=== PATIENT | female | born 1980 | race Caucasian/White ===

== ENCOUNTER 2017-04-28 19:42 | Inpatient (IN) | payer MEDICAID ==
[~2017-04-28] VITALS: Ht 162.6 cm; Wt 64.0 kg
[~2017-04-28 19:42] MED LIST: CLEO300C2 PO; TRAM50 PO; TYLE3 PO; Z.0.NO CURRENT MEDS
--- NOTE | 2017-04-28 20:32 | HHI.HP ---
HPI Chief Complaint Vaginal bleeding Date Seen: Apr 28, 2017 Travel History International Travel<30 Days: No Contact w/Intl Traveler<30Days: No Known Affected Area: No History of Present Illness HPI Patient is 37-year-old white female at 29 weeks complaining of vaginal bleeding today. She denies pain. Or leakage of fluid. She states she's passed several blood clots one the size of a lemon today and is been spotting all day.. Days ago she had what she describes as of bleeding a lot just running out her legs at work and she saw Dr. Kumar for this she's had several ultrasounds as well. heart rate tracing is reactive and she is not te at this time. Para: 2 : 5 History Obstetric History Obstetric History 2 vaginal deliveries Social History Narrative Social History Has a history of IV drug abuse IV opiate use but has been clean for a year she is on Subutex now Alcohol Use: No Tobacco Use: No Substance Abuse: Yes Allergies-Medications (Allergen,Severity, Reaction): Coded Allergies: penicillin G (Unverified Allergy, Severe, rash itch, 04/25/17) Home Meds Active Scripts Acetaminophen/Codeine (Tylenol #3)300 Mg/30 Mg Tab1-2 Tab PO Q4-6HPRN #20 FOR PAIN Prov:Michel Farley MD 06/11/12 Clindamycin Hcl (Cleocin)300 Mg Ttu546 Mg PO QID #40 Prov:Michel Farley MD 06/11/12 Tramadol Hcl (Ultram)50 Mg Tab1 Tab PO Q6HPRN #20 Prov:Hunter Montanez MD 11/25/11 Reported Medications Miscellaneous (No Current Meds) [facility] [place] 02/28/11 Review of Systems General / Constitutional: No: Fever, Weight Gain, Chills, Other Eyes: No: Diploplia, Blurred Vision, Visual changes, Pain, Photophobia HENT: No: Headaches, Vertigo, Lightheadedness Cardiovascular: No: Irregular Rhythm, Chest Pain or Discomfort, Palpitations, Tachycardia, Syncope, Varicosities, Edema, Cyanosis Respiratory: No: Cough, Short of Breath, Other Gastrointestinal: No: Nausea, Vomiting, Diarrhea Genitourinary: Vaginal Bleeding, No: Decreased Urinary Output, Oliguria Musculoskeletal: No: Limited ROM, Weakness, Cramping, Edema, Pain Skin: No Rash, No Itching, No Dryness, No Lumps, No Change in Pigmentation, No Change in Nails, No Alopecia, No Lesions Neurologic: No: Weakness, Dizziness, Syncope, Focal Abnormalities, Coordination Problem, Headache, Slurred Speech, Seizures Psychiatric: No: Depression, Suicidal Ideations, Homicidal Ideation Endocrine: No: Heat Intolerance, Cold Intolerance, Polydipsia, Polyuria, Other Physical Exam Narrative GENERAL: Well-nourished, well-developed patient. SKIN: Warm and dry. HEAD: Normocephalic and atraumatic. EYES: No scleral icterus. No injection or drainage. ENT: No nasal drainage noted. Mucous membranes pink. Airway patent. NECK: Supple, trachea midline. No JVD. CARDIOVASCULAR: Regular rate and rhythm without murmurs, gallops, or rubs. RESPIRATORY: Breath sounds equal bilaterally. No accessory muscle use. BREASTS: Bilateral exam showed no masses , no retractions, no nipple discharge. ABDOMEN/GI: Abdomen soft, non-tender, bowel sounds present, no rebound, no guarding Gravid to [-29] weeks size Fundal Height: [29-] GENITOURINARY: External Genitalia: intact and normal in appearance Speculum exam was done there is a minimal amount of dark blood in the vagina and pinnae size blood clot at the cervical os. Cervix appears thick and closed internal os, fingertip external os however no digital exam was done.] Cervix: [-] Dilatation: [-] Effacement: [-] Station: [-] Presentation: [-] Membranes: [intact or ruptured] Uterine Contractions: [none-] FHT's: Category: [1-] Baseline: [-133] Reactive: [-yes] Variability: [mod-] Decels: [none-] EXTREMITIES: No cyanosis or edema. BACK: Nontender without obvious deformity. No CVA tenderness. NEUROLOGICAL: Awake and alert. Motor and sensory grossly within normal limits. Five out of 5 muscle strength in all muscle groups. Normal speech. Data Data Labs Bedside ultrasound was done shows a single male fetus in a backdown transverse lie with a head to the right, size equal dates , baby is very active ,a posterior marginal previa seen, amniotic fluid volume Assessment/Plan Assessment and Plan This patient is 37-year-old white female 29 weeks who has third trimester bleeding painless over the last week. Tonight she comes in with a vaginal bleeding complaint and on bedside ultrasound I can visualize a posterior placenta previa at the margin very close to the cervix if not attached to the lower edge cervix Impression-third trimester bleeding from a posterior placenta previa, mal presentation of fetus backdown transverse lie History of drug abuse with IV drug usage in the past currently on Subutex Plan-admit to the hospital for inpatient observation, plan idea level II ultrasound in the near very near future, CBC CMP PT PTT, type and screen, maintain IV access. We will discuss the patient with Dr. Nance is covering for Dr. Kumar's weekend Anderson Rich II, MD Apr 28, 2017 20:32
[2017-04-28] MEDS ORDERED: SODIUM CHLORIDE 0.9% FLUSH 10 ML FLUSH IV FLUSH PRN (20:45)
[2017-04-28] MEDS ORDERED: ONDANSETRON HCL 4 MG/2 ML VIAL IV PRN (20:45)
[2017-04-28] MEDS ORDERED: SODIUM CHLORIDE 0.9% FLUSH 10 ML FLUSH IV FLUSH SCH (21:00)
[2017-04-28 21:06] LABS: AUTOMATED NEUTROPHIL # 5.3 TH/MM3 (1.8-7.7); BASOPHIL % 0.3 % (0.0-2.0); EOSINOPHIL # 0.2 TH/MM3 (0-0.4); EOSINOPHIL % 2.4 % (0.0-4.0); HEMO FLAGS DIFF FINAL; LYMPH % 18.3 % (9.0-44.0); LYMPHOCYTE # 1.5 TH/MM3 (1.0-4.8); MEAN CELL VOLUME 83.2 FL (80.0-100.0); MEAN CORPUSCULAR HEMOGLOBIN 28.5 PG (27.0-34.0); MEAN CORPUSCULAR HGB CONC 34.2 % (32.0-36.0); MONO % 12.5 % (0.0-8.0); NEUT % 66.5 % (16.0-70.0); PLATELET COUNT 215 TH/MM3 (150-450); RED BLOOD COUNT 3.85 MIL/MM3 (4.00-5.30); RED CELL DISTRIBUTION WIDTH 13.4 % (11.6-17.2)
[2017-04-28] MEDS ORDERED: LACTATED RINGER'S 1000 ML INJ 1,000 ML IV SCH (21:15)
[2017-04-28] MEDS ORDERED: FOLI400T PO (21:42)
[2017-04-28] MEDS ORDERED: [UNRECOGNIZED DRUG - CODE] (21:42)
[2017-04-28] MEDS ORDERED: PREN1TAB30 (21:42)
[2017-04-28 23:57] LABS: APTT (PATIENT) 29.9 SEC (24.3-30.1); PROTHROMBIN TIME - PATIENT 10.6 SEC (9.8-11.6)
[2017-05-04 12:01] LABS: PHENCYCLIDINE URINE NEG (NEG)
[2017-05-04 12:03] LABS: BATH SALTS (MDPV) UR NEG (NEG); ECSTASY (MDMA) UR NEG (NEG); HEROIN (6-ACETYLMORPHINE) UR NEG (NEG); K2 SPICE UR NEG (NEG); OBMETHADONE UR NEG (NEG)
[2017-05-04 12:04] LABS: GABAPENTIN UR NEG (NEG)
[2017-05-04 12:05] LABS: HYDROMORPHONE U POS (NEG)
== END 2017-04-29 00:34 | disposition left against medical advice (07) | DRG 782 ==
LOC: HOBED 19:42 → H2EA 20:49
PROVIDERS: ADMIT Obstetrics & Gynecology; ATTEND Obstetrics & Gynecology
DX: O44.03 Complete placenta previa NOS or without hemorrhage, third trimester (principal); O09.523 Supervision of elderly multigravida, third trimester; Z3A.29 29 weeks gestation of pregnancy
CPT/HCPCS: 76815; 80307; 85025; 85610; 85730; 86850; 86900; 86901; G0481; J7120

== ENCOUNTER → 2017-05-11 | Outpatient (CLI) | payer MEDICAID ==
[~2017-05-11] MED LIST changes: +BETAMETHASONE SOD PHOS/ACETATE SUSP 30 MG/5 ML VIAL IM SCH; -CLEO300C2 PO; +FOLI400T PO; +IBUP-232 PO; +PREN1TAB30; +SUBUTEX; -TRAM50 PO; -TYLE3 PO; -Z.0.NO CURRENT MEDS; +[UNRECOGNIZED DRUG - CODE]
== END ==
LOC: HPND 11:03
PROVIDERS: ATTEND Obstetrics & Gynecology
DX: O44.03 Complete placenta previa NOS or without hemorrhage, third trimester (principal)
CPT/HCPCS: 76816; 76817; 96372; J0702

== ENCOUNTER → 2017-05-12 | Outpatient (CLI) | payer MEDICAID ==
[~2017-05-12] MED LIST changes: +BETAMETHASONE SOD PHOS/ACETATE SUSP 30 MG/5 ML VIAL IM ONE; -BETAMETHASONE SOD PHOS/ACETATE SUSP 30 MG/5 ML VIAL IM SCH
== END ==
LOC: HOBG 11:21
PROVIDERS: ATTEND Obstetrics & Gynecology
DX: O44.03 Complete placenta previa NOS or without hemorrhage, third trimester (principal); O44.13 Complete placenta previa with hemorrhage, third trimester; Z3A.00 Weeks of gestation of pregnancy not specified
CPT/HCPCS: 96372; J0702

== ENCOUNTER 2017-06-08 10:50 | Inpatient (IN) | payer MEDICAID ==
[2017-06-08] VITALS (13 sets, daily range): BP systolic 99–124; BP diastolic 61–79; PULSE 65–90; RESP 15–23; TEMP 97.7–98.4; O2SAT 98–100
[~2017-06-08] VITALS: Ht 162.6 cm; Wt 64.4 kg
[~2017-06-08 10:50] MED LIST changes: -BETAMETHASONE SOD PHOS/ACETATE SUSP 30 MG/5 ML VIAL IM ONE; +BUPIVACAINE LIPOSOME PF 1.3% 20 ML VIAL ONE; -IBUP-232 PO; -SUBUTEX
[2017-06-08] MEDS ORDERED: SUBUTEX (12:14)
[2017-06-08 12:20] LABS: AUTOMATED NEUTROPHIL # 8.4 TH/MM3 (1.8-7.7); BASOPHIL % 0.2 % (0.0-2.0); EOSINOPHIL # 0.1 TH/MM3 (0-0.4); EOSINOPHIL % 1.3 % (0.0-4.0); HEMATOCRIT 30.1 % (35.0-46.0); LYMPH % 17.3 % (9.0-44.0); MEAN CELL VOLUME 83.3 FL (80.0-100.0); MEAN CORPUSCULAR HEMOGLOBIN 28.5 PG (27.0-34.0); MEAN CORPUSCULAR HGB CONC 34.3 % (32.0-36.0); MONO % 7.3 % (0.0-8.0); NEUT % 73.9 % (16.0-70.0); PLATELET COUNT 244 TH/MM3 (150-450); RED BLOOD COUNT 3.62 MIL/MM3 (4.00-5.30); RED CELL DISTRIBUTION WIDTH 14.3 % (11.6-17.2); WHITE BLOOD COUNT 11.3 TH/MM3 (4.0-11.0)
[2017-06-08 12:22] LABS: HEMO FLAGS AUTO DIFF
[2017-06-08] MEDS: LACTATED RINGER'S 1000 ML IV SCH (12:30)
[2017-06-08] MEDS ORDERED: LACTATED RINGER'S 1000 ML IV ONE (12:30)
[2017-06-08] MEDS ORDERED: BUPRENORPHINE HCL 0.3 MG/1 ML VIAL ONE (12:33)
[2017-06-08 12:37] LABS: BACTERIA, URINE RARE /hpf; BLOOD, URINE MOD (NEG); COMMENT (UR) CULT NOT INDICATED; CULTURE IF INDICATED CULT NOT INDICATED; GLUCOSE,URINE NEG (NEG); KETONE, URINE NEG (NEG); NITRITE,URINE NEG (NEG); PH, URINE 8.5 (5.0-8.5); SQUAMOUS EPITHELIAL CELL URINE 7 /hpf (0-5); URINE COLOR YELLOW (YELLW/STRAW)
[2017-06-08] MEDS ORDERED: ceFAZolin INJ 1,000 MG VIAL ONE (12:40)
--- NOTE | 2017-06-08 12:42 | HHI.HP ---
HPI Chief Complaint CS for bleeding previa Date Seen: Jun 08, 2017 Time Seen: 12:20 Travel History International Travel<30 Days: No Contact w/Intl Traveler<30Days: No Known Affected Area: No History of Present Illness HPI 36 week IUP with bleeding complete previa received steroids and has had 10 episodes of bleeding Weeks Gestation: 36 Para: 4 : 2 Last Menstrual Period: Jun 08, 2017 History Past Medical History Medical History: Denies Significant Hx Obstetric History Obstetric History x2 Past Surgical History Narrative Surgical none Family History Family History: Negative Social History Alcohol Use: No Tobacco Use: No Substance Abuse: No Allergies-Medications (Allergen,Severity, Reaction): Coded Allergies: penicillin G (Verified Allergy, Severe, rash itch, 06/08/17) Home Meds Reported Medications [Subutex] No Conflict Check, 930 06/08/17 Ascorbic Acid/Ascorbate Sodium (Vit C-Tamie Hips 500 mg Chew Tb) 500 Mg Tab.chew 04/28/17 Folic Acid (Folic Acid) 400 Mcg Tab, 400 MCG PO DAILY for Nutritional Supplement , TAB 0 Refills 04/28/17 Vit W/ Ferrous Fumara ( Vitamin 27-0.8 mg) 1 Tab Tab 04/28/17 Review of Systems Except as stated in HPI: all other systems reviewed are Neg Physical Exam Narrative GENERAL: Well-nourished, well-developed patient. SKIN: Warm and dry. HEAD: Normocephalic and atraumatic. EYES: No scleral icterus. No injection or drainage. ENT: No nasal drainage noted. Mucous membranes pink. Airway patent. NECK: Supple, trachea midline. No JVD. CARDIOVASCULAR: Regular rate and rhythm without murmurs, gallops, or rubs. RESPIRATORY: Breath sounds equal bilaterally. No accessory muscle use. BREASTS: Bilateral exam showed no masses , no retractions, no nipple discharge. ABDOMEN/GI: Abdomen soft, non-tender, bowel sounds present, no rebound, no guarding Gravid to [-] weeks size Fundal Height: [-] GENITOURINARY: External Genitalia: intact and normal in appearance BUS glands: [-] Cervix: [-] Dilatation: [-] Effacement: [-] Station: [-] Presentation: [-] Membranes: [intact or ruptured] Uterine Contractions: [-] FHT's: Category: [-] Baseline: [-] Reactive: [-] Variability: [-] Decels: [-] EXTREMITIES: No cyanosis or edema. BACK: Nontender without obvious deformity. No CVA tenderness. NEUROLOGICAL: Awake and alert. Motor and sensory grossly within normal limits. Five out of 5 muscle strength in all muscle groups. Normal speech. Caprini VTE Risk Assessment Caprini VTE Risk Assessment: No/Low Risk (score <= 1) Caprini Risk Assessment Model Point Value = 1 Point Value = 2 Point Value = 3 Point Value = 5 Age 41-60 Minor surgery BMI > 25 kg/m2 Swollen legs Varicose veins or History of unexplained or recurrent spontaneous Oral contraceptives or hormone replacement Sepsis (< 1 month) Serious lung disease, including pneumonia (< 1 month) Abnormal pulmonary function Acute myocardial infarction Congestive heart failure (< 1 month) History of inflammatory bowel disease Medical patient at bed rest Age 61-74 Arthroscopic surgery Major open surgery (> 45 min) Laparoscopic surgery (> 45 min) Malignancy Confined to bed (> 72 hours) Immobilizing plaster cast Central venous access Age >= 75 History of VTE Family history of VTE Factor V Leiden Prothrombin [id number] Lupus anticoagulant Anticardiolipin antibodies Elevated serum homocysteine Heparin-induced thrombocytopenia Other congenital or acquired thrombophilia Stroke (< 1 month) Elective arthroplasty Hip, pelvis, or leg fracture Acute spinal cord injury (< 1 month) Prophylaxis Regimen Total Risk Factor Score Risk Level Prophylaxis Regimen 0-1 Low Early ambulation 2 Moderate Order ONE of the following: *Sequential Compression Device (SCD) *Heparin 5000 units SQ BID 3-4 Higher Order ONE of the following medications: *Heparin 5000 units SQ TID *Enoxaparin/Lovenox 40 mg SQ daily (WT < 150 kg, CrCl > 30 mL/min) *Enoxaparin/Lovenox 30 mg SQ daily (WT < 150 kg, CrCl > 10-29 mL/min) *Enoxaparin/Lovenox 30 mg SQ BID (WT < 150 kg, CrCl > 30 mL/min) AND/OR *Sequential Compression Device (SCD) 5 or more Highest Order ONE of the following medications: *Heparin 5000 units SQ TID (Preferred with Epidurals) *Enoxaparin/Lovenox 40 mg SQ daily (WT < 150 kg, CrCl > 30 mL/min) *Enoxaparin/Lovenox 30 mg SQ daily (WT < 150 kg, CrCl > 10-29 mL/min) *Enoxaparin/Lovenox 30 mg SQ BID (WT < 150 kg, CrCl > 30 mL/min) AND *Sequential Compression Device (SCD) Data Data Vital Signs Reviewed: Yes Orders Orders Admit To Inpatient (06/08/17 ) Vital Signs (Adult) .ON ADMISSION (06/08/17 11:08) Activity Oob Ad Yahaira (06/08/17 11:08) Heart (06/08/17 11:08) Urinary Catheter Management KELSEA.Q8H (06/08/17 11:08) ^ Preps (06/08/17 11:08) Scd / Dominguez / Foot Pump KELSEA.QSHIFT (06/08/17 11:08) ^ Ultrasound For Locatio (06/08/17 11:08) Diet Npo (06/08/17 Lunch) Type And Screen (06/08/17 11:08) Complete Blood Count With Diff (06/08/17 11:08) Urinalysis - C+S If Indicated (06/08/17 11:08) Specimen To Be Collected PRN (06/08/17 11:08) Ob/Psych Drug Screen, Urine (06/08/17 11:08) Red Blood Cells (Rbc) (06/08/17 11:52) Lactated Ringer's 1000 Ml Inj (Lr 1000 M (06/08/17 12:30) Lactated Ringer's 1000 Ml Inj (Lr 1000 M (06/08/17 12:30) Citric Acid-Sodium Citrate Liq (Bicitra (06/08/17 12:45) Cefazolin 2 Gm Premix (Ancef 2 Gm Premix (06/08/17 12:45) Buprenorphine Inj (Buprenex Inj) (06/08/17 12:33) Group B Strep: Negative Labs Laboratory Tests Test 06/08/17 11:30 06/08/17 11:47 White Blood Count 11.3 Red Blood Count 3.62 Hemoglobin 10.3 Hematocrit 30.1 Mean Corpuscular Volume 83.3 Mean Corpuscular Hemoglobin 28.5 Mean Corpuscular Hemoglobin Concent 34.3 Red Cell Distribution Width 14.3 Platelet Count 244 Mean Platelet Volume 7.2 Neutrophils (%) (Auto) 73.9 Lymphocytes (%) (Auto) 17.3 Monocytes (%) (Auto) 7.3 Eosinophils (%) (Auto) 1.3 Basophils (%) (Auto) 0.2 Neutrophils # (Auto) 8.4 Lymphocytes # (Auto) 2.0 Monocytes # (Auto) 0.8 Eosinophils # (Auto) 0.1 Basophils # (Auto) 0.0 CBC Comment AUTO DIFF Assessment/Plan Problem List: (1) 36 weeks gestation of ICD Codes: Z3A.36 - 36 weeks gestation of (2) Placenta previa ICD Codes: O44.00 - Complete placenta previa NOS or without hemorrhage, unspecified trimester Plan: for CS Michel Leong MD Jun 08, 2017 12:42
[2017-06-08] MEDS ORDERED: ceFAZolin 2 GM PREMIX 50 ML IV SCH (12:45)
[2017-06-08] MEDS ORDERED: CITRIC ACID-SODIUM CITRATE LIQ 30 ML UDC PO SCH (12:45)
[2017-06-08 12:52] LABS: PLATELET ESTIMATE SMEAR NORMAL (NORMAL); PLATELET MORPHOLOGY NORMAL (NORMAL); SCAN/DIFF AUTO DIFF CONFIRMED
[2017-06-08] MEDS ORDERED: ACETAMINOPHEN 1000 MG/100 ML 100 ML IV ONE (13:17)
--- NOTE | 2017-06-08 13:29 | PD.OB.DELI ---
Procedure Note Section Procedure Pre Op Diagnosis: (1) Placenta previa (2) 36 weeks gestation of Post Op Diagnosis: (1) Placenta previa Performed by Michel Leong Procedure: Primary Low Transverse Sec Indication for delivery: Other (bleeding placenta previa at 36 weeks) Previous condition: None Informed consent obtained: For anesthesia, For procedure Confirmed correct: Patient, Procedure, Time-out taken Anesthesia: Spinal, Other (general) Urinary catheter: Inserted using sterile technique, To dependent drainage Sterile preparation: Duraprep Position: Supine with wedge to left side Operative Features Skin Incision: Pfannenstiel Uterine Incision: Low transverse w/knife / blunt ext Presentation: Occiput anterior, Other (unstable) Delivery date: Jun 08, 2017 Delivery time: 13:02 Delivery of : Uneventful : Male One Minute : 8 Five Minute : 9 Weight: 2630 Status of infant: Viable Placenta delivered: Intact, Sent to pathology Medications: Antibiotics Estimated blood loss: 500 Procedure tolerated: Well Maternal Condition: Stable Condition: Stable Michel Leong MD Jun 08, 2017 13:29
[2017-06-08] MEDS ORDERED: SODIUM CHLORIDE 0.9% FLUSH 10 ML FLUSH IV FLUSH PRN (13:30)
[2017-06-08] MEDS ORDERED: OXYTOCIN 30 UNITS-500ML PREMIX 500 ML IV ONE (13:30)
[2017-06-08] MEDS: KETOROLAC TROMETHAMINE 60 MG/2 ML (IM) VIAL IM PRN (14:26)
[2017-06-08] MEDS ORDERED: KETOROLAC TROMETHAMINE 30 MG/ML (IVP) VIAL ONE (14:29)
[2017-06-08] MEDS ORDERED: OXYTOCIN 30 UNITS-500ML PREMIX 500 ML ONE (14:48)
[2017-06-08] MEDS ORDERED: SIMETHICONE 80 MG CHEWABLE TAB PO PRN (15:00)
[2017-06-08] MEDS ORDERED: ACETAMINOPHEN 1000 MG/100 ML VIAL IV ONE (15:00)
--- NOTE | 2017-06-08 15:59 | MP ---
cc: VICTORIANO LEONG M.D. DATE OF SURGERY: 06/08/2017 PROCEDURE Primary low transverse section PREOPERATIVE DIAGNOSIS 36 weeks actively bleeding placenta previa. POSTOPERATIVE DIAGNOSIS 36 weeks, actively bleeding placenta previa. SURGEON Dr. Victoriano Leong ESTIMATED BLOOD LOSS 500 cc. ANESTHESIA: Spinal which was not adequate. General anesthesia was applied by Dr. Mcghee COMPLICATIONS None SAP SD ANALYST SURGEON Dr. Emiliana Mcghee FINDINGS Live male , 'S of 08. Meconium-stained fluid old meconium-stained fluid was noted. PROCEDURE IN DETAIL After informed consent the patient was taken to the operating room where she placed under spinal anesthesia placed spine position left lateral tilt. Prepped, draped normal sterile fashion after adequate anesthesia was assured and the patient was under general anesthesia, Pfannenstiel skin itself. A Pfannenstiel skin incision was carried sharply skin to fascia. Fascia nicked midline incision was then laterally using Watson scissors. Rectus muscle was sharply dissected and the peritoneum was entered bluntly with a [place]. The incision was then extended laterally using blunt traction. The uterus noted be midline slightly tilted to the left a bladder flap was created by dissect bladder off the lower uterine segment and a low-transverse uterine incision was then made, carried sharply uterine cavity meconium stained fluid was noted. The incision was then laterally using blunt traction. Meconium-stained fluid, tea-colored was noted. A hand was placed in the uterus. The 's head was very unstable, it kept shifting to the patient's right despite fundal pressure. Once the fluid was out we were able to bring the head down, flex it on the chest and then deliver the baby with fundal pressure by Dr. Lauren. The delivered, the shoulders were then delivered. Cord was clamped and cut and sent to pediatric team in waiting. The cord blood was collected. Placenta was identified manually. Uterus exteriorized and wiped free from all remaining products of conception. The placenta previa was complete previa over the os. The os was opened to 1-2 cm dilated, there was no significant active bleeding. The incision was closed with running locking stitch of chromic suture. There were some large vessels down near the incision from the placenta previa but they were not actively bleeding when the uterus was closed in some. The uterus placed back in the abdomen noted to be hemostatic. The bladder flap was oozing slightly. This was cauterized at the end of procedure. Peritoneum was closed the fascia was closed Vicryl suture. Skin was closed subcuticular stitch, each layer was noted be hemostatic prior to closure. The patient tolerated the procedure well. MD ZACARIAS Price/kecia /1:29 PM /2:55 PM
[2017-06-08] MEDS ORDERED: LACTATED RINGER'S 1000 ML INJ 1,000 ML IV SCH (18:23)
[2017-06-08] MEDS ORDERED: EPIDURAL-DO NOT ADMINISTER ANTICOAGULANTS PRN (20:00)
[2017-06-08] MEDS ORDERED: MORPHINE SULFATE PF 5 MG/10 ML VIAL IT ONE (20:00)
[2017-06-08] MEDS ORDERED: EPIDURAL-DIPHENHYDRAMINE HCL 50 MG CAP PO PRN (20:00)
[2017-06-08] MEDS ORDERED: EPIDURAL-NO SYSTEMIC NARCOTICS PRN (20:00)
[2017-06-08] MEDS ORDERED: EPIDURAL-NALOXONE HCL 0.4 MG/ML AMP IV PUSH PRN (20:00)
[2017-06-08] MEDS ORDERED: EPIDURAL-DIPHENHYDRAMINE HCL 50 MG/ML VIAL IV PUSH PRN (20:00)
[2017-06-08] MEDS ORDERED: SODIUM CHLORIDE 0.9% FLUSH 10 ML FLUSH IV FLUSH SCH (21:00)
[2017-06-08] MEDS ORDERED: OXYTOCIN 30 UNITS-500ML PREMIX 500 ML IV PRN (23:30)
[2017-06-09 01:00] VITALS: BP 114/74; PULSE 72; RESP 18; TEMP 98.8
[2017-06-09] MEDS: PROMETHAZINE HCL 25 MG TAB PO PRN ×3 (01:20→22:06)
[2017-06-09] MEDS: KETOROLAC TROMETHAMINE 60 MG/2 ML (IM) VIAL IM PRN ×2 (01:21→08:59)
[2017-06-09 05:53] LABS: AUTOMATED NEUTROPHIL # 8.5 TH/MM3 (1.8-7.7); BASOPHIL % 0.2 % (0.0-2.0); EOSINOPHIL # 0.1 TH/MM3 (0-0.4); EOSINOPHIL % 0.5 % (0.0-4.0); HEMATOCRIT 22.9 % (35.0-46.0); HEMO FLAGS DIFF FINAL; LYMPH % 14.9 % (9.0-44.0); LYMPHOCYTE # 1.7 TH/MM3 (1.0-4.8); MEAN CELL VOLUME 83.6 FL (80.0-100.0); MEAN CORPUSCULAR HEMOGLOBIN 28.3 PG (27.0-34.0); MEAN CORPUSCULAR HGB CONC 33.9 % (32.0-36.0); MONO % 8.1 % (0.0-8.0); NEUT % 76.3 % (16.0-70.0); PLATELET COUNT 218 TH/MM3 (150-450); RED BLOOD COUNT 2.74 MIL/MM3 (4.00-5.30); RED CELL DISTRIBUTION WIDTH 14.2 % (11.6-17.2); WHITE BLOOD COUNT 11.1 TH/MM3 (4.0-11.0)
[2017-06-09 05:55] VITALS: BP 114/68; PULSE 66; RESP 18; TEMP 98.1
--- NOTE | 2017-06-09 07:54 | HHI.OB ---
Subjective Post Day: 1 Remarks doing well, pain difficult to control without narcotics Objective Objective Remarks GENERAL: Well-nourished, well-developed patient. Pt sleeping ABDOMEN/GI: Abdomen soft, non-tender. Fundus: Firm, non-tender at umbilicus. GENITOURINARY: Light to moderate bleeding. EXTREMITIES: No cyanosis or edema, non-tender, without signs of DVT. Medications and IVs Current Medications Medications (Trade) Dose Ordered Sig/Basilio Route Start Time Stop Time Status Last Admin Lactated Ringer's 1,000 ml @ 150 mls/hr Q6H40M IV 06/08/17 12:30 06/08/17 12:30 (Bicitra Liq) 30 ml COLLAR STITCHER PO 06/08/17 12:45 06/11/17 12:44 06/08/17 12:34 Cefazolin Sodium/ Dextrose 50 ml @ 100 mls/hr COLLAR STITCHER IV 06/08/17 12:45 06/11/17 12:44 Lactated Ringer's 1,000 ml @ 100 mls/hr Q10H IV 06/08/17 18:23 06/09/17 14:22 Oxytocin 500 ml @ 100 mls/hr UNSCH X1 PRN IV 06/08/17 23:30 06/09/17 23:29 06/08/17 15:24 (NS Flush) 2 ml BID IV FLUSH 06/08/17 21:00 (NS Flush) 2 ml UNSCH PRN IV FLUSH 06/08/17 13:30 (Mylicon Chew) 80 mg QID PRN PO 06/08/17 15:00 (Motrin) 600 mg Q6H PRN PO 06/08/17 15:00 (Toradol Inj) 30 mg Q6H PRN IM 06/08/17 15:00 06/09/17 14:59 06/09/17 01:21 (M-M-R Ii Inj) 0.5 ml ONCE ONCE SQ 06/09/17 16:00 06/09/17 16:01 (Boostrix Inj) 0.5 ml ONCE ONCE IM 06/09/17 16:00 06/09/17 16:01 (Phenergan) 25 mg Q4H PRN PO 06/08/17 20:00 Miscellaneous Information NO SYSTEMIC NARCOTICS TO BE GIVEN FO... UNSCH PRN .XX 06/08/17 20:00 06/09/17 19:59 (Narcan Inj) 0.4 mg UNSCH PRN IV PUSH 06/08/17 20:00 06/09/17 19:59 (Benadryl Inj) 25 mg Q6H PRN IV PUSH 06/08/17 20:00 06/09/17 19:59 (Benadryl) 50 mg Q6H PRN PO 06/08/17 20:00 06/09/17 19:59 Miscellaneous Information ALL NURSING DEPARTMENTS UNSCH PRN .XX 06/08/17 20:00 06/09/17 19:59 Assessment/Plan Problem List: (1) 36 weeks gestation of ICD Codes: Z3A.36 - 36 weeks gestation of (2) Placenta previa ICD Codes: O44.00 - Complete placenta previa NOS or without hemorrhage, unspecified trimester Plan: for CS (3) delivery delivered ICD Codes: O82 - Encounter for delivery without indication Discharge Planning doing well Michel Leong MD Jun 09, 2017 07:54
[2017-06-09 08:00] VITALS: BP 114/67; PULSE 65; RESP 17; TEMP 98.4
[2017-06-09] MEDS ORDERED: DIPHTH/TETANUS/ACEL PERTUSSIS (BOOSTER) 0.5 ML VIAL/PFS IM ONE (16:00)
[2017-06-09] MEDS ORDERED: MEASLES, MUMPS, RUBELLA VACCINE 0.5 ML VIAL SQ ONE (16:00)
[2017-06-09] MEDS: IBUPROFEN 600 MG TAB PO PRN ×2 (16:04→22:06)
[2017-06-09] MEDS: LACTATED RINGER'S 1000 ML IV SCH (20:07)
[2017-06-10] MEDS: LACTATED RINGER'S 1000 ML IV SCH (04:30)
[2017-06-10] MEDS: PROMETHAZINE HCL 25 MG TAB PO PRN (04:56)
[2017-06-10] MEDS: IBUPROFEN 600 MG TAB PO PRN ×3 (04:56→18:37)
--- NOTE | 2017-06-10 08:09 | HHI.OB ---
Subjective Post Day: 2 Remarks doing well dc home follow up 2 weeks Objective Objective Remarks GENERAL: Well-nourished, well-developed patient. ABDOMEN/GI: Abdomen soft, non-tender. Fundus: Firm, non-tender at umbilicus.incision clear GENITOURINARY: Light to moderate bleeding. EXTREMITIES: No cyanosis or edema, non-tender, without signs of DVT. Medications and IVs Current Medications Medications (Trade) Dose Ordered Sig/Basilio Route Start Time Stop Time Status Last Admin Lactated Ringer's 1,000 ml @ 150 mls/hr Q6H40M IV 06/08/17 12:30 06/08/17 12:30 (Bicitra Liq) 30 ml OIL DISPATCHER PO 06/08/17 12:45 06/11/17 12:44 06/08/17 12:34 Cefazolin Sodium/ Dextrose 50 ml @ 100 mls/hr OIL DISPATCHER IV 06/08/17 12:45 06/11/17 12:44 (NS Flush) 2 ml BID IV FLUSH 06/08/17 21:00 (NS Flush) 2 ml UNSCH PRN IV FLUSH 06/08/17 13:30 (Mylicon Chew) 80 mg QID PRN PO 06/08/17 15:00 (Motrin) 600 mg Q6H PRN PO 06/08/17 15:00 06/10/17 04:56 (Phenergan) 25 mg Q4H PRN PO 06/08/17 20:00 06/10/17 04:56 Assessment/Plan Problem List: (1) 36 weeks gestation of ICD Codes: Z3A.36 - 36 weeks gestation of (2) Placenta previa ICD Codes: O44.00 - Complete placenta previa NOS or without hemorrhage, unspecified trimester Plan: for CS (3) delivery delivered ICD Codes: O82 - Encounter for delivery without indication Discharge Planning pain improved DC home Michel Lenog MD Jun 10, 2017 08:09
--- NOTE | 2017-06-10 08:11 | HHI.DCPOC ---
Discharge Care Plan Diagnosis: (1) delivery delivered Report Symptoms to Your Doctor -Temperature above 100.5 degrees -Redness, of incision or excessive or foul smelling drainage -Unusual pain or calf pain -Increased vaginal bleeding -Painful or difficulty urinating -Feelings of extreme sadness or anxiety after 2 weeks Goals to Promote Your Health * To prevent worsening of your condition and complications * To maintain your health at the optimal level Directions to Meet Your Goals Take your medications as prescribed Follow your dietary instruction Follow activity as directed Ensure plenty of rest for recovery Drink fluids for hydration Keep your appointments as scheduled Take your immunizations and boosters as scheduled If your symptoms worsen call your PCP, if no PCP go to Urgent Care Center or Emergency Room Smoking is Dangerous to Your Health. Avoid second hand smoke Call the 24-hour crisis hotline for domestic abuse at Michel Leong MD Jun 10, 2017 08:11
[2017-06-10] MEDS ORDERED: IBUP-232 PO (08:12)
--- NOTE | 2017-06-10 08:14 | HHI.DS ---
Admission Date Jun 08, 2017 at 10:50 Discharge Date: Jun 10, 2017 Admitting Diagnosis Diagnosis: Delivery Date: Jun 08, 2017 : Primary Infant: Male Brief History 36 week IUP with bleeding complete previa received steroids and has had 10 episodes of bleeding Hospital Course dc home doing well. Pt requesting dc Pt Condition on Discharge: Good Discharge Disposition: Discharge Home Discharge Instructions Diet Instructions: As Tolerated, No Restrictions Activities You Can Perform: Pelvic Rest Activities to Avoid: Driving for 24 hrs Follow up Referrals: PRINTER MACHINE - 1 Week @ [facility] with Michel Leong MD New Medications: Ibuprofen (Ibuprofen) 600 Mg Tab 600 MG PO Q6H PRN for CRAMPING for 7 Days, #28 TAB 0 Refills Continued Medications: Ascorbic Acid/Ascorbate Sodium (Vit C-Tamie Hips 500 mg Chew Tb) 500 Mg Tab.chew Folic Acid (Folic Acid) 400 Mcg Tab 400 MCG PO DAILY for Nutritional Supplement, TAB 0 Refills Vit W/ Ferrous Fumara ( Vitamin 27-0.8 mg) 1 Tab Tab [Subutex] () 750 Michel Leong MD Jun 10, 2017 08:14
[2017-06-12 11:47] LABS: PHENCYCLIDINE URINE NEG (NEG)
[2017-06-12 11:48] LABS: OBMETHADONE UR NEG (NEG)
[2017-06-12 11:49] LABS: BATH SALTS (MDPV) UR NEG (NEG); ECSTASY (MDMA) UR NEG (NEG); GABAPENTIN UR NEG (NEG); HEROIN (6-ACETYLMORPHINE) UR NEG (NEG); K2 SPICE UR NEG (NEG)
[2017-06-12 11:50] LABS: HYDROMORPHONE U POS (NEG)
== END 2017-06-10 22:10 | disposition home or self-care (01) | DRG 766 ==
LOC: H2EB 10:50 → H1EA 15:13
PROVIDERS: ADMIT Obstetrics & Gynecology; ATTEND Obstetrics & Gynecology
PROC: 10D00Z1 Extraction of Products of Conception, Low, Open Approach (ICD-10-PCS; principal; 2017-06-08)
DX: O44.13 Complete placenta previa with hemorrhage, third trimester (principal); O77.0 Labor and delivery complicated by meconium in amniotic fluid; Z37.0 Single live birth; Z3A.36 36 weeks gestation of pregnancy
CPT/HCPCS: 59025; 80307; 81001; 85025; 86850; 86900; 86901; 86920; 87641; 88307; C9290; G0481; J0131; J0592; J0690; J1885; J2590; J3010; J7120; Q0169